=== PATIENT | male | born 1970 | race Two or more races ===

== ENCOUNTER 2016-10-30 12:56 | Emergency (ER) | payer OTHER ==
[~2016-10-30] VITALS: Ht 182.9 cm; Wt 106.1 kg
[2016-10-30] MEDS ORDERED: KETOROLAC TROMETH 60MG/2ML VIAL IM ONE (14:15)
[2016-10-30] MEDS ORDERED: SODIUM CHLORIDE 0.9% 1,000 ML IV ONE (15:16)
[2016-10-30] MEDS ORDERED: ONDANSETRON HCL 4 MG/2 ML VIAL IV ONE (15:30)
[2016-10-30] MEDS ORDERED: MORPHINE SULF INJ 2 MG/ML SYRINGE 1ML IV ONE (15:30)
[2016-10-30] MEDS ORDERED: cefTRIAXone 1GM/50ML D5W 50 ML IV ONE ×2 (15:31→16:00)
[2016-10-30] MEDS: cefTRIAXone SOD 1,000 MG VL IV ONE ×2 (15:45→15:52)
[2016-10-30 15:49] LABS: Basophils # (auto) 0.1 uL; Basophils % (auto) 0.5 % (0.0-2.0); CONDITION Y; DEFINITIVE Y; Eosinophils # (auto) 0 uL; Eosinophils % (auto) 0.2 % (0.0-7.0); Hematocrit 32.4 % (41.0-53.0); Hemoglobin 10.7 g/dL (13.5-17.5); Lymphocytes # (auto) 1.7 uL; Lymphocytes % (auto) 17.6 % (10.0-50.0); Mean Corpuscular Hemoglobin 26.5 pg (28.0-32.0); Mean Corpuscular Hgb Conc. 33.2 g/dL (32.0-36.0); Mean Corpuscular Volume 79.9 fL (80.0-100.0); Mean Platelet Volume 6.9 fL (7.4-10.4); Monocytes # (auto) 0.5 uL; Monocytes % (auto) 5.6 % (0.0-12.0); Neutrophils # (auto) 7.4 uL; Neutrophils % (auto) 76.1 % (37.0-80.0); Platelet Count (auto) 523 10^3/uL (140-450); Red Cell Distribution Width 14.4 % (11.6-16.0); White Blood Cell 9.7 10^3/uL (4.4-10.8)
[2016-10-30 16:07] LABS: Albumin 3.1 g/dL (3.4-5.0); BUN/Creatinine Ratio 17.2; Bilirubin, Total 0.4 mg/dL (0.2-1.0); Calcium 8.7 mg/dL (8.5-10.1); Total Protein 8.1 g/dL (6.4-8.2)
[2016-10-30 16:15] LABS: Potassium 2.8 mmol/L (3.5-5.1)
[2016-10-30] MEDS ORDERED: POTASSIUM CHL 20 Meq TABLET PO ONE (16:30)
[2016-10-30 16:47] LABS: INR 0.99 (0.9-1.15); Partial Thromboplastin Time 29.4 sec (22.64-33.71); Prothrombin Time 10.8 sec (9.37-12.3)
[2016-10-30 17:40] VITALS: BP 150/95
== END 2016-10-30 17:59 | disposition short-term general hospital (02) ==
LOC: ER 12:56
DX: M54.9 Dorsalgia, unspecified (principal); R20.0 Anesthesia of skin
CPT/HCPCS: 36415; 71010; 72131; 80053; 83605; 85025; 85610; 85652; 85730; 86141; 87040; 96365; 96372; 96375; 99285; J0696; J1885; J2270; J2405; J7030